=== PATIENT | male | born 2000 | race Caucasian/White ===

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

== ENCOUNTER 2022-03-31 17:13 | Emergency (ER) | payer MEDICAID ==
[~2022-03-31] VITALS: Ht 182.9 cm; Wt 63.4 kg
[~2022-03-31 17:13] MED LIST changes: +TOBRSUS41 OS
[2022-03-31 17:14] VITALS: BP 141/85
== END 2022-03-31 20:39 | disposition left against medical advice (07) ==
LOC: M ED 17:13
DX: Z53.21 Procedure and treatment not carried out due to patient leaving prior to being seen by health care provider (principal)

== ENCOUNTER 2025-03-15 04:22 | Emergency (ER) | payer MEDICAID, OTHER ==
[~2025-03-15] VITALS: Ht 182.9 cm; Wt 68.2 kg
[2025-03-15 04:23] VITALS: BP 152/102; TEMP 98.2; O2SAT 99
== END 2025-03-15 05:35 | disposition left against medical advice (07) ==
LOC: M ED 04:22
DX: Z53.21 Procedure and treatment not carried out due to patient leaving prior to being seen by health care provider (principal)

== ENCOUNTER → 2025-04-08 | Outpatient (REF) | payer OTHER | LOC: M LAB REF 17:40 | DX: B34.9 Viral infection, unspecified (principal) ==